=== PATIENT | female | born 1970 | race Caucasian/White ===

== ENCOUNTER 2020-08-15 23:17 | Emergency (ER) | payer MEDICAID ==
[~2020-08-15] VITALS: Ht 170.2 cm; Wt 117.0 kg
[2020-08-15 23:27] VITALS: BP 167/95; Ht 170.2 cm; Wt 117.0 kg
== END 2020-08-16 00:49 | disposition home or self-care (01) ==
LOC: D.ER 23:17
DX: S61.011A Laceration without foreign body of right thumb without damage to nail, initial encounter (principal); W25.XXXA Contact with sharp glass, initial encounter; Y93.9 Activity, unspecified; Y92.9 Unspecified place or not applicable